=== PATIENT | female | born 1960 | race Caucasian/White ===

== ENCOUNTER 2021-11-05 04:58 | Observation (INO) ==
[2021-11-05] MEDS ORDERED: NITROGLYCERIN SL 0.4 MG TABLET SL ONE (05:17)
[2021-11-05] MEDS ORDERED: NITROGLYCERIN SL 0.4 MG TABLET SL STA ×2 (05:19→05:40)
[2021-11-05] MEDS ORDERED: ASPIRIN CHEW 81 MG TABLET PO ONE (05:39)
[2021-11-05] MEDS ORDERED: ASPIRIN CHEW 81 MG TABLET PO STA (05:40)
[2021-11-05 05:46] LABS: Basophils # 0.1 10*3/uL (0.0-0.2); Basophils % 0.8 % (0.0-0.8); Eosinophils # 0.2 10*3/uL (0.0-0.87); Eosinophils % 2.1 % (0.00-10.9); Hematocrit 47.3 VOL% (35.7-47.0); Hemoglobin 15.3 GM/DL (12.0-16.0); Immature Granulocytes % 0.3 %; Immature Granulocytes Absolute 0.03 #; Lymphocytes # 2.7 10*3/uL (1.4-4.0); Lymphocytes % 30.6 % (21.3-54.2); Mean Corpuscular HGB Conc 32.3 GM/DL (32-36); Mean Corpuscular Volume 95.9 FL (87-102); Mean Platelet Volume 9.1 FL (9.6-12.0); Monocytes % 4.9 % (1.7-12.7); Neutrophils % 61.3 % (38.7-73.9); Platelet Count 311 T/CUMM (130-400); Red Blood Count 4.93 MC/CUMM (3.8-5.5); Red Cell Distribution Width 12.8 % (9.3-17.3)
[2021-11-05] MEDS ORDERED: fentaNYL 100 MCG/2 ML VIAL IV STA (05:48)
[2021-11-05] MEDS ORDERED: ONDANSETRON 4 MG/2 ML VIAL IV ONE (05:48)
[2021-11-05 05:59] LABS: Alanine Aminotransferase 33 U/L (13-56); Albumin 3.9 G/DL (3.4-5.0); Alkaline Phosphatase 94 U/L (45-117); Aspartate Amino Transferase 18 U/L (0-37); Bilirubin,Total < 0.39 MG/DL (0.20-1.00); Blood Urea Nitrogen 17 MG/DL (7-18); Calcium 9.1 MG/DL (8.5-10.1); Carbon Dioxide 25 MMOL/L (21-32); Estimated Glom Filtration Rate 60 ML/MIN; Glucose 159 MG/DL (74-106); Osmolality,Calculated 283.4 MOS/KG (273-304); Potassium 4.3 MMOL/L (3.5-5.1); Sodium 140 MMOL/L (136-145); Total Protein 7.5 G/DL (6.4-8.2)
[2021-11-05] MEDS ORDERED: LEVOTHYROXINE 150 MCG TABLET PO SCH (09:00)
[2021-11-05] MEDS: EZETIMIBE 10 MG TABLET PO SCH (09:10)
[2021-11-05] MEDS: ROSUVASTATIN 10 MG TABLET PO SCH (09:10)
[2021-11-05] MEDS: DAPAGLIFLOZIN 10 MG TABLET PO SCH (09:10)
[2021-11-05] MEDS: ASPIRIN EC 81 MG TABLET PO SCH (09:10)
[2021-11-05] MEDS ORDERED: amLODIPine 5 MG TABLET PO STA (09:28)
[2021-11-05] MEDS ORDERED: NITROGLYCERIN 2% OINT 1 INCH/GM PACK TOP STA (09:28)
[2021-11-05] MEDS ORDERED: hydrALAZINE 20 MG/1 ML VIAL IV STA (09:32)
[2021-11-05] MEDS ORDERED: ACETAMINOPHEN 325 MG TABLET PO PRN (09:50)
[2021-11-05] MEDS ORDERED: ONDANSETRON 4 MG/2 ML VIAL IV PRN (09:50)
[2021-11-05] MEDS ORDERED: GLUCAGON 1 MG VIAL IM PRN (09:50)
[2021-11-05] MEDS ORDERED: hydrALAZINE 20 MG/1 ML VIAL IV PRN (09:50)
[2021-11-05] MEDS ORDERED: SIMETHICONE CHEW 125 MG TABLET PO PRN (09:50)
[2021-11-05] MEDS ORDERED: DEXTROSE 10% 250 ML BAG IV PRN ×2 (09:56→11:58)
[2021-11-05] MEDS: VALSARTAN 80 MG TABLET PO SCH (10:10)
[2021-11-05 11:01] LABS: Risk Ratio 3.81
[2021-11-05 11:45] LABS: RBC,Urine 1 /HPF (0-4); Squamous Epithelial Cell,Urine Occasional /HPF (0-10)
[2021-11-05 11:46] LABS: Bilirubin,Urine Negative (Negative); Blood, Urine Negative (Negative); Glucose,Urine (UA) 500 mg/dL (Negative); Ketones,Urine Negative (Negative); Nitrite,Urine Negative (Negative); Protein,Urine Negative (Negative); Urine Appearance Clear (Clear); Urine Color Yellow (Yellow); Urine Urobilinogen 0.2 eU/dL (<2.0)
[2021-11-05] MEDS: amLODIPine 5 MG TABLET PO SCH (12:42)
[2021-11-05] MEDS: ENOXAPARIN 40 MG/0.4 ML SYRINGE SUBCUT SCH (12:42)
[2021-11-05] MEDS: PANTOPRAZOLE 40 MG TABLET PO SCH (20:58)
[2021-11-06 04:57] LABS: Basophils # 0.1 10*3/uL (0.0-0.2); Basophils % 0.7 % (0.0-0.8); Eosinophils # 0.1 10*3/uL (0.0-0.87); Eosinophils % 1.8 % (0.00-10.9); Hematocrit 46.4 VOL% (35.7-47.0); Hemoglobin 14.8 GM/DL (12.0-16.0); Immature Granulocytes % 0.3 %; Immature Granulocytes Absolute 0.02 #; Lymphocytes # 2.7 10*3/uL (1.4-4.0); Lymphocytes % 36.9 % (21.3-54.2); Mean Corpuscular HGB Conc 31.9 GM/DL (32-36); Mean Corpuscular Volume 95.3 FL (87-102); Mean Platelet Volume 8.7 FL (9.6-12.0); Monocytes % 5.7 % (1.7-12.7); Neutrophils % 54.6 % (38.7-73.9); Platelet Count 257 T/CUMM (130-400); Red Blood Count 4.87 MC/CUMM (3.8-5.5); Red Cell Distribution Width 12.7 % (9.3-17.3); White Blood Count 7.4 T/CUMM (4-12)
[2021-11-06 05:17] LABS: Calcium 8.9 MG/DL (8.5-10.1); Osmolality,Calculated 281.4 MOS/KG (273-304); Potassium 4.3 MMOL/L (3.5-5.1)
[2021-11-06] MEDS ORDERED: DEXTROSE 10% 250 ML BAG IV PRN (09:27)
[2021-11-06] MEDS ORDERED: GLUCAGON 1 MG VIAL IM PRN (09:27)
[2021-11-06] MEDS: ASPIRIN EC 81 MG TABLET PO SCH (10:33)
[2021-11-06] MEDS: ROSUVASTATIN 10 MG TABLET PO SCH (10:34)
[2021-11-06] MEDS: VALSARTAN 80 MG TABLET PO SCH (10:34)
[2021-11-06] MEDS: DAPAGLIFLOZIN 10 MG TABLET PO SCH (10:35)
[2021-11-06] MEDS: amLODIPine 5 MG TABLET PO SCH (10:35)
[2021-11-06] MEDS: EZETIMIBE 10 MG TABLET PO SCH (10:36)
[2021-11-06] MEDS: PANTOPRAZOLE 40 MG TABLET PO SCH (10:36)
[2021-11-06] MEDS: ENOXAPARIN 40 MG/0.4 ML SYRINGE SUBCUT SCH (10:37)
[2021-11-06 12:17] VITALS: BP 133/78
[2021-11-07] MEDS ORDERED: LEVOTHYROXINE 175 MCG TABLET PO SCH (06:30)
[2021-11-07] MEDS ORDERED: LEVOTHYROXINE 150 MCG TABLET PO SCH (06:30)
== END 2021-11-06 13:08 | disposition home or self-care (01) ==
LOC: N.ED 04:58 → N.EDINP 04:58 → N.TELEN 14:14
PROVIDERS: ADMIT Internal Medicine; ATTEND Internal Medicine